=== PATIENT | female | born 1945 | race Caucasian/White ===

== ENCOUNTER 2018-08-16 10:08 | Outpatient (CLI) | payer OTHER | END 2018-08-16 10:10 | disposition home or self-care (01) | LOC: SONOGRAMA 10:08 | DX: E04.1 Nontoxic single thyroid nodule (principal) ==

== ENCOUNTER 2019-09-27 10:30 | Inpatient (IN) | payer OTHER ==
[~2019-09-27] VITALS: Ht 160 cm; Wt 88.5 kg
[2019-09-27] MEDS ORDERED: LOSARTAN-HCTZ1 EAC2 PO (13:06)
[2019-09-27] MEDS ORDERED: LIPITOR PO (13:06)
[2019-09-27] MEDS ORDERED: PROAIR HFA8.5 GM IH (13:07)
[2019-09-27] MEDS ORDERED: VERELAN120 MG PO (13:08)
[2019-09-27] MEDS ORDERED: MULTIVITAMIN PO (13:09)
[2019-09-27] MEDS ORDERED: CALCIUM PO (13:10)
[2019-09-27] MEDS ORDERED: OSTERA TABLET1 EACH PO (13:11)
[2019-09-27] MEDS ORDERED: [UNRECOGNIZED DRUG - OTHER] PO (13:11)
[2019-10-03] MEDS ORDERED: REFRESH OPTIVE10 ML (09:05)
[2019-10-03] MEDS ORDERED: ATORVASTATIN CA10 MG PO (09:06)
[2019-10-03] MEDS ORDERED: CLOTRIMAZOLE-BE15 G1 (09:06)
[2019-10-03] MEDS ORDERED: TAPAZOLE5 M1 PO (09:06)
[2019-10-03] MEDS ORDERED: CALCIUM500 M1 (09:07)
[2019-10-03] MEDS ORDERED: MULTI VITAMIN1 EACH (09:09)
[2019-10-05] MEDS ORDERED: IBUPROFEN400 MG PO (08:13)
[2019-10-05] MEDS ORDERED: FERROUS SULFAT325 M1 PO (08:13)
== END 2019-10-05 09:39 | disposition home or self-care (01) | DRG 740 ==
LOC: O/R 10-03 07:55 → OB/GYN 10-03 07:55 → O/R 10-03 10:30 → OB/GYN 10-03 11:54 → O/R 10-03 13:45 → OB/GYN 10-05 09:39
PROVIDERS: ADMIT Obstetrics & Gynecology
PROC: 0UT77ZZ Resection of Bilateral Fallopian Tubes, Via Natural or Artificial Opening (ICD-10-PCS; 2019-10-03)
PROC: 0UT27ZZ Resection of Bilateral Ovaries, Via Natural or Artificial Opening (ICD-10-PCS; 2019-10-03)
PROC: 0UQF0ZZ Repair Cul-de-sac, Open Approach (ICD-10-PCS; 2019-10-03)
PROC: 0USG0ZZ Reposition Vagina, Open Approach (ICD-10-PCS; 2019-10-03)
PROC: 0UQG8ZZ Repair Vagina, Via Natural or Artificial Opening Endoscopic (ICD-10-PCS; 2019-10-03)
PROC: 0UT97ZZ Resection of Uterus, Via Natural or Artificial Opening (ICD-10-PCS; principal; 2019-10-03 13:45)
DX: C54.1 Malignant neoplasm of endometrium (principal); C79.62 Secondary malignant neoplasm of left ovary; N99.820 Postprocedural hemorrhage of a genitourinary system organ or structure following a genitourinary system procedure; N99.72 Accidental puncture and laceration of a genitourinary system organ or structure during other procedure; N95.0 Postmenopausal bleeding; N81.5 Vaginal enterocele; N72 Inflammatory disease of cervix uteri; I10 Essential (primary) hypertension; E03.8 Other specified hypothyroidism

== ENCOUNTER 2019-10-10 17:15 | Inpatient (IN) | payer OTHER ==
[~2019-10-10] VITALS: Ht 160 cm; Wt 90.7 kg
[~2019-10-10 17:15] MED LIST: ATORVASTATIN CA10 MG PO; CALCIUM PO; CALCIUM500 M1; CLOTRIMAZOLE-BE15 G1; FERROUS SULFAT325 M1 PO; IBUPROFEN400 MG PO; LIPITOR PO; LOSARTAN-HCTZ1 EAC2 PO; MULTI VITAMIN1 EACH; MULTIVITAMIN PO; OSTERA TABLET1 EACH PO; PROAIR HFA8.5 GM IH; REFRESH OPTIVE10 ML; TAPAZOLE5 M1 PO; VERELAN120 MG PO; [UNRECOGNIZED DRUG - OTHER] PO
--- NOTE | 2019-10-10 18:16 | NUR ---
SE RECIBE PTE AMBULANDO ALERTA Y ORIENTADA X3, CON ADMISION DIRECTA DE DR. KIRK BARRIENTOS. PTE CON COMPLICACIONES DESPUES DE PROCEDIMIENTO QUIRURGICO HISTERECTOMIA COMPLETA. ENTREGA REFERIDOS Y ADMISION DIRECTA A SECRETARIA SUE. SE UBICA A PTE EN AREA DE OBSERVACION PARA SER EVALUADA POR MEDICO.
[2019-10-23] MEDS ORDERED: INTESTINEX680 M1 PO (13:36)
[2019-10-23] MEDS ORDERED: LEVAQUIN750 MG PO (13:37)
[2019-10-23] MEDS ORDERED: INTEGRA PLUS C1 EACH PO (13:37)
== END 2019-10-23 14:11 | disposition home or self-care (01) | DRG 919 ==
LOC: ER 17:15 → OB/GYN 18:38
PROVIDERS: ADMIT Obstetrics & Gynecology
PROC: BW21ZZZ Computerized Tomography (CT Scan) of Abdomen and Pelvis (ICD-10-PCS; 2019-10-10)
PROC: BW4GZZZ Ultrasonography of Pelvic Region (ICD-10-PCS; 2019-10-11)
PROC: 0J9C30Z Drainage of Pelvic Region Subcutaneous Tissue and Fascia with Drainage Device, Percutaneous Approach (ICD-10-PCS; principal; 2019-10-12)
PROC: 3E0F7GC Introduction of Other Therapeutic Substance into Respiratory Tract, Via Natural or Artificial Opening (ICD-10-PCS; 2019-10-12)
PROC: BW21Y0Z Computerized Tomography (CT Scan) of Abdomen and Pelvis using Other Contrast, Unenhanced and Enhanced (ICD-10-PCS; 2019-10-17)
PROC: B54DZZZ Ultrasonography of Bilateral Lower Extremity Veins (ICD-10-PCS; 2019-10-21)
DX: N99.820 Postprocedural hemorrhage of a genitourinary system organ or structure following a genitourinary system procedure (principal); K65.1 Peritoneal abscess; D62 Acute posthemorrhagic anemia; J90 Pleural effusion, not elsewhere classified; R18.8 Other ascites; J98.11 Atelectasis; B37.41 Candidal cystitis and urethritis; N85.02 Endometrial intraepithelial neoplasia [EIN]; I87.2 Venous insufficiency (chronic) (peripheral); B95.2 Enterococcus as the cause of diseases classified elsewhere; B96.6 Bacteroides fragilis [B. fragilis] as the cause of diseases classified elsewhere; B96.4 Proteus (mirabilis) (morganii) as the cause of diseases classified elsewhere; R31.0 Gross hematuria

== ENCOUNTER 2019-11-08 08:07 | Outpatient (CLI) | payer OTHER ==
[~2019-11-08 08:07] MED LIST changes: +INTEGRA PLUS C1 EACH PO; +INTESTINEX680 M1 PO; +LEVAQUIN750 MG PO
== END 2019-11-08 08:16 | disposition home or self-care (01) ==
LOC: LAB 08:07
DX: N20.0 Calculus of kidney (principal)

== ENCOUNTER 2019-11-15 07:46 | Outpatient (CLI) | payer OTHER | END 2019-11-15 07:52 | disposition home or self-care (01) | LOC: TOM 07:46 | DX: C54.1 Malignant neoplasm of endometrium (principal); N99.820 Postprocedural hemorrhage of a genitourinary system organ or structure following a genitourinary system procedure ==